=== PATIENT | female | born 1945 | race Caucasian/White ===

== ENCOUNTER → 2017-01-11 | Outpatient (CLI) | payer OTHER | LOC: FIMAGING 12:55 | PROVIDERS: ATTEND Family Medicine | DX: R22.0 Localized swelling, mass and lump, head (principal); R51 Headache; R41.3 Other amnesia; R11.0 Nausea; Z87.820 Personal history of traumatic brain injury ==

== ENCOUNTER → 2017-02-12 | Outpatient (CLI) | payer OTHER | LOC: FIMAGING 12:28 | PROVIDERS: ATTEND Family Medicine | DX: M16.0 Bilateral primary osteoarthritis of hip (principal) ==

== ENCOUNTER → 2017-09-24 | Outpatient (CLI) | payer OTHER | LOC: CIMAGING 08:07 | PROVIDERS: ATTEND Orthopaedic Surgery | DX: Z01.89 Encounter for other specified special examinations (principal); M16.11 Unilateral primary osteoarthritis, right hip | CPT/HCPCS: 73700-PO ==

== ENCOUNTER 2017-09-27 05:31 | Inpatient (IN) | payer OTHER ==
[2017-09-27] MEDS ORDERED: BUPI/epINEPH/KETOROLAC IU ONE (06:00)
[2017-09-27] MEDS ORDERED: TRANEXAMIC ACID 1,000 MG in NS (SYRINGE) 50 ML IV ONE (06:00)
[2017-09-27] MEDS ORDERED: ROPIVACAINE 0.2% 80 MG, EPINEPHrine 0.2 MG, KETOROLAC TROMETHAMINE 30 MG in SYRINGE 0 ML IU ONE (06:00)
[2017-09-27] MEDS ORDERED: POVIDONE-IODINE 20 ML in SODIUM CL IRRIG SOLUTION 500 ML IRR ONE (06:00)
[2017-09-27] MEDS ORDERED: ACETAMINOPHEN 325 MG TAB PO ONE (06:13)
[2017-09-27] MEDS ORDERED: ceFAZolin 2 GM/SWFI 2 GM/20 ML SYR IVP ONE (06:13)
[2017-09-27] MEDS ORDERED: DEXAMETHASONE 4 MG/ML VIAL IVP ONE (06:13)
[2017-09-27] MEDS ORDERED: FAMOTIDINE 20 MG TAB PO ONE (06:13)
[2017-09-27] MEDS ORDERED: LIDOCAINE 1% 2 ML INJ ID PRN (06:17)
[2017-09-27] MEDS ORDERED: LR 1,000 ML IV ONE (06:17)
[2017-09-27] MEDS ORDERED: BUPIVACAINE/EPI 0.5% 30 ML SDV ONE (06:45)
[2017-09-27] MEDS ORDERED: POLYMYXIN B SULFATE 500,000 UNIT/10 ML SYR IRR ONE (06:46)
[2017-09-27] MEDS ORDERED: BACITRACIN 50,000 UNITS/10 ML SYR IRR ONE (06:46)
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
[2017-09-27] MEDS ORDERED: MIDAZOLAM 2 MG/2 ML VIAL IVP ONE (07:02)
--- NOTE | 2017-09-27 07:06 | PDHPUP ---
History & Physical Update H&P update statement: This history and physical update is based on an assessment of the patient which was completed after admission or registration (within 24 hours), but prior to the surgery/procedure. H&P update: H&P reviewed & patient examined, no change in patient's condition since H&P completed
[2017-09-27] MEDS ORDERED: BUPIVACAINE 0.5% 30 ML SDV ONE (07:09)
[2017-09-27] MEDS ORDERED: PROPOFOL/EMULSION 500 MG/50 ML BOTTLE IV ONE ×2 (07:10→08:43)
[2017-09-27] MEDS ORDERED: LIDOCAINE 2% 5 ML SDV ONE (07:10)
[2017-09-27] MEDS ORDERED: fentaNYL 100 MCG/2 ML INJ ONE (07:11)
[2017-09-27] MEDS ORDERED: epHEDrine SULFATE 10 MG/ML SYR ONE (07:57)
[2017-09-27] MEDS ORDERED: PHENYLEPHRINE HCL 100 MCG/ML SYR ONE (08:20)
[2017-09-27] MEDS ORDERED: ONDANSETRON 4 MG/2 ML VIAL IVP PRN ×2 (10:10→10:18)
[2017-09-27] MEDS ORDERED: fentaNYL 100 MCG/2 ML INJ IVP PRN (10:10)
[2017-09-27] MEDS ORDERED: PROMETHAZINE HCL 25 MG/ML INJ IVP PRN ×2 (10:10→10:18)
[2017-09-27] MEDS ORDERED: NALOXONE HCL 0.4 MG/ML INJ IVP PRN (10:10)
[2017-09-27] MEDS ORDERED: ALBUTEROL 3 ML DEYVIAL IH PRN (10:10)
[2017-09-27] MEDS ORDERED: DIAZEPAM 5 MG/ML 1 ML SYR IVP PRN (10:10)
[2017-09-27] MEDS ORDERED: oxyCODONE IR 5 MG TAB PO PRN (10:10)
[2017-09-27] MEDS ORDERED: HYDROmorphONE/DILAUDID 1 MG/ML INJ IVP PRN (10:10)
--- NOTE | 2017-09-27 10:10 | POSTANESTH ---
Post Anesthetic Evaluation Cardiovascular Status: Normal, Stable Respiratory Status: Normal, Stable Level of Consciousness/Mental Status: Can Participate in Eval Pain Control: Adequate, Prn Tx Ordered Nausea/Vomiting Control: Adequate, Prn Tx Ordered Complications Possibly Related to Anesthesia: None Noted
[2017-09-27] MEDS ORDERED: MAGNESIUM HYDROXIDE 30 ML UDCUP PO PRN (10:18)
[2017-09-27] MEDS ORDERED: DIPHENOXYLATE/ATROPINE LOMOTIL 1 TAB PO PRN (10:18)
[2017-09-27] MEDS ORDERED: diphenhydrAMINE 25 MG CAP PO PRN (10:18)
[2017-09-27] MEDS ORDERED: PROMETHAZINE HCL 25 MG SUPPR PR PRN (10:18)
[2017-09-27] MEDS ORDERED: BISACODYL 10 MG SUPP PR PRN (10:18)
[2017-09-27] MEDS ORDERED: HYDROmorphONE/DILAUDID 2 MG/ML INJ IVP PRN (10:18)
[2017-09-27] MEDS ORDERED: METOCLOPRAMIDE 10 MG/2 ML VIAL IVP PRN (10:18)
[2017-09-27] MEDS ORDERED: CYCLOBENZAPRINE 10 MG TAB PO PRN (10:18)
[2017-09-27] MEDS ORDERED: ONDANSETRON DISINTEGRATING 4 MG TAB PO PRN (10:18)
[2017-09-27] MEDS ORDERED: LACTULOSE 20 GM/30 ML UDCUP PO PRN (10:18)
[2017-09-27] MEDS ORDERED: TEMAZEPAM 15 MG CAP PO PRN (10:18)
[2017-09-27] MEDS ORDERED: POLYETHYLENE GLYCOL 3350 17 GM PKT PO PRN (10:18)
--- NOTE | 2017-09-27 10:18 | POSTOPPROG ---
Post Op Note Date of Operation: 09/27/17 Surgeon: Royce Sharma Director Mobile: Oswaldo Banda CSA Anesthesia: IV Sedation, Spinal Pre-op Diagnosis: Right hip end-stage OA Post-op Diagnosis: Same Procedure: Right anterior approach GISELA Inf/Abcess present in the surg proc area at time of surgery?: No EBL: 100-500 (300) Drains: Hemovac
[2017-09-27] MEDS ORDERED: LR 1,000 ML IV SCH (10:30)
[2017-09-27] MEDS: ACETAMINOPHEN 325 MG TAB PO SCH ×3 (12:18→23:42)
[2017-09-27] MEDS ORDERED: ceFAZolin 2 GM/DEXTROSE 100 ML IV SCH (14:00)
--- NOTE | 2017-09-27 14:07 | PDMN ---
Medical Necessity Medical necessity: Patient meets inpatient criteria per physician note and [facility] S -560 Hip Arthroplasty (CPT 79825 / Medicare inpatient-only surgery.)
[2017-09-27] MEDS: oxyCODONE IR 5 MG TAB PO PRN ×3 (14:58→18:38)
--- NOTE | 2017-09-27 15:14 | ASMTCMCOM ---
CM Note CM Note Notes: Telephone call from Dr. Edith HAJI Luz Maria ([phone]) reporting she originally believed pt had family available to stay with her for longer than they actually can. Pt dghtr called Luz Maria to say family can only stay w pt Sunday night and Sunday night if pt d/c tomorrow. Pt does live alone. Luz Maria has already set up [facility] PT for pt. PT rec home/outpatient today so pt may not qualify for SNF if she is interested. Luz Maria would like to be updated on d/c planning. CM to follow pt progress and discuss d/c with pt tomorrow. Date Signed: 09/27/2017 03:13 PM Electronically Signed By:CORA Oconnell
[2017-09-27] MEDS: ceFAZolin 2 GM/SWFI 2 GM/20 ML SYR IVP SCH ×2 (15:46→23:42)
--- NOTE | 2017-09-27 20:09 | GOP ---
[f rep st] OPERATIVE REPORT DATE OF OPERATION: 09/27/2017 SURGEON: Royce Sharma MD BRAZING MACHINE OPERATOR HELPER: ANA QuinnA, LSJacqui Barrel Drum Cutter was required for the procedure due to the complexity of the case, the patient's condition, for positioning, prepping, draping, retraction, and closure. ANESTHESIA: Spinal and IV sedation. PREOPERATIVE DIAGNOSIS: Right hip osteoarthritis. POSTOPERATIVE DIAGNOSIS: Right hip osteoarthritis. PROCEDURE PERFORMED: Right hip anterior approach hip replacement with MAKOplasty robotic guidance and fluoroscopic supervision greater than 1 hour. SPECIMENS: None. ESTIMATED BLOOD LOSS: 300 cc. INDICATIONS: Patient has severe osteoarthritis that failed to improve with conservative measures significantly affecting activities of daily living, including walking. The patient elected to proceed with anterior approach hip replacement using MAKOplasty robotic guidance after extensive discussion of all possible approaches as well as the risks, benefits, pros, cons, expected recovery, and prognosis. Patient verbalized understanding of the risks and benefits of the procedure and signed the informed consent prior to the procedure. DESCRIPTION OF PROCEDURE: Patient was seen in the holding area and the operative consent and extremity were signed. Patient then taken to the operating room. After smooth induction of general anesthesia, patient was placed in supine position on the [facility] fracture table. The hip and contralateral iliac crest were prepped and draped in the usual sterile fashion. The operative site was confirmed by signature. Operative time-out performed. Allergies reviewed. Antibiotics and TXA administered. Three pins were placed in the contralateral iliac crest and the pelvic array was fixed. It was well visualized by the robot. The desired incision for the anterior approach to the hip was infiltrated with 0.5% Marcaine with epinephrine. The incision was then made with a 10 blade, carried down through subcutaneous tissue to identify the TFL fascia. This was incised inline with the incision and the TFL was retracted laterally. The lateral femoral circumflex vessels were coagulated with Aquamantys and Bovie electrocautery. The deep TFL fascia was incised with vastus lateralis clearly exposed. The precapsular fat was excised. A T-shaped capsulotomy was performed and the capsule was preserved for later closure. The femoral checkpoint was placed into the anterior greater trochanter and Express registration was completed using the robot. The femoral neck cut was estimated using fluoroscopic guidance and the neck cut was then performed and the femoral head was excised with a corkscrew. The acetabulum was exposed in standard fashion. Labrum and pulvinar soft tissue were excised sharply. The pelvic checkpoint was placed in the AIIS. Acetabular registration was performed using the robot. Reaming was then performed using the robot to the desired size. The cup was impacted into place , again with robotic guidance system. Good fixation was achieved. The cup was irrigated and dried and the liner was impacted into place, achieving good locking within the cup. There were no overhanging osteophytes. The femur was then exposed in standard fashion. The femur was broached to the desired size. Trial neck and head were attached and the hip was relocated. Length and offset were confirmed using the robot. The position of all components was also confirmed at this point fluoroscopically. The hip was dislocated and the femoral trial components were removed and the stem was impacted into place. The trunnion was cleaned and dried and the head was impacted down into the trunnion. The wound was copiously irrigated, including the cup with pulse lavage and the hip was once again relocated. Final numbers for length and offset were again checked with the robot and component placement was confirmed with fluoroscopy. All checkpoints were removed. The pelvic array was also removed. The wound was copiously irrigated with sterile solution. Dilute Betadine solution was then irrigated into the wound allowed to soak for 3 minutes before being irrigated out. The joint cocktail was injected in the soft tissues. The capsule was repaired with #1 Vicryl sutures, including the indirect head of the rectus femoris. The drain was placed exiting distally and laterally from deep to TFL. The wound was then closed in layers with 0 Quill in the TFL fascia and deep subcutaneous fat and 3-0 Versalok in the dermis. The wound was dressed with sterile dressings, and the patient was safely awakened and taken to the recovery room in stable condition. All critical portions of the procedure were performed by myself, Dr. Sharma. The operative note was created by myself, Dr. Sharma, and I was immediately available for emergency cross-coverage at all times. DRAINS: Hemovac x1. COMPLICATIONS: None. IMPLANTS: Includes a Trident hemispherical acetabular shell size 54, +36 mm polyethylene liner. Accolade II size 4 stem, 127-degree offset 36 mm, -2.5 head. /[id number]/MODL MTDD
[2017-09-27] MEDS: FAMOTIDINE 20 MG TAB PO SCH (20:50)
[2017-09-27] MEDS: SENNOSIDES/DOCUSATE SODIUM TAB PO SCH (20:50)
[2017-09-27] MEDS: ASPIRIN 325 MG TAB PO SCH (20:51)
[2017-09-27] MEDS ORDERED: traZODone 50 MG TAB PO SCH (21:00)
[2017-09-27] MEDS ORDERED: MELATONIN 3 MG TAB PO SCH (21:00)
[2017-09-28] MEDS: oxyCODONE IR 5 MG TAB PO PRN ×3 (02:23→12:17)
[2017-09-28] MEDS: ACETAMINOPHEN 325 MG TAB PO SCH ×2 (06:21→12:17)
--- NOTE | 2017-09-28 07:40 | SOAPPROG ---
SOAP Progress Note Assessment/Plan: Assessment: Postoperative day 1 status post right anterior approach total hip arthroplasty Plan: Weight-bearing as tolerated, PT OT, with assistance Analgesics as needed, wean off narcotics as tolerated Incentive spirometry 10 times per hour Aspirin 325 mg daily, Sobeida Osborn for DVT prophylaxis Disposition: Home today 09/28/17 07:37 Subjective: No acute events overnight. Patient however did not rest well. Pain is well controlled mostly with Tylenol only. She denies fevers chills nausea vomiting chest pain shortness of breath numbness or tingling. Does admit to mild swelling Objective: Vital Signs Temp Pulse Resp BP Pulse Ox 36.8 C 68 16 103/4 L 93 09/28/17 04:00 09/28/17 04:00 09/28/17 04:00 09/28/17 04:00 09/28/17 04:00 Laboratory Results 09/28/17 04:33 09/27/17 09/28/17 09/29/17 05:59 05:59 05:59 Intake Total 4100 Output Total 2620 Balance 1480 Awake alert and oriented x3 no acute distress Easy nonlabored breathing Right lower extremity: Mild swelling and ecchymosis No erythema or or drainage Drain discontinued Thigh and calf compartments soft compressible No calf pain Sensation intact light touch L4-S1 Motor intact EHL FHL tibialis anterior gastrocsoleus Palpable DP PT pulses - Time Spent With Patient Time Spent With Patient: 15 - Pending Discharge Pending Discharge Within 24 Hours: Yes Pending Discharge Date: 09/28/17 Pending Discharge Time: 11:00 ICD10 Worksheet Patient Problems: Problems Problem Status Onset Osteoarthritis of right hip Acute
[2017-09-28 07:46] VITALS: BP 122/67
[2017-09-28] MEDS: SENNOSIDES/DOCUSATE SODIUM TAB PO SCH (08:22)
[2017-09-28] MEDS: FAMOTIDINE 20 MG TAB PO SCH (08:22)
[2017-09-28] MEDS: ASPIRIN 325 MG TAB PO SCH (08:24)
[2017-09-28] MEDS ORDERED: FLUoxetine 10 MG CAP PO SCH (09:00)
[2017-09-28] MEDS ORDERED: PRAVASTATIN SODIUM 20 MG TAB PO SCH (09:00)
[2017-09-28] MEDS ORDERED: MULTIVITAMINS 1 EACH TAB PO SCH (09:00)
--- NOTE | 2017-09-28 10:04 | ASMTCMCOM ---
CM Note CM Note Notes: Dc order received. Met with pt to discuss HHC vs SNF. Pt prefers to return home with C. [facility] previously arranged. Pt states her daughter will be staying with her the next couple nights. Updated Luz Maria HAJI; confirmed [facility] orders were previously sent to [facility]. Spoke with Karrie at [facility]; confirmed orders were received. Faxed paperwork; confirmed received. RN updated. No other needs at this time. Date Signed: 09/28/2017 10:03 AM Electronically Signed By:No Ku RN
--- NOTE | 2017-09-28 10:05 | ASDISCHSUM ---
Discharge Information Plan Status:Home with Home Health Medically Cleared to Leave:09/28/2017 Discharge Date:09/28/2017 CM D/C Disposition:Home Health Service ADT D/C Disposition:Home, Routine, Self-Care Projected Discharge Date:09/28/2017 11:00 AM Transportation at D/C:Family Discharge Delay Reason: Follow-Up Date:09/28/2017 11:00 AM Discharge Slot: Final Diagnosis: Placement Information Referral Type:*Home Health Care Services Referral ID:[id number] Provider Name:[facility] Address 1:[address] Address 2: City:[place] Selection Factors: State:[place] Patient Contact Information Contact Name:DONALD Relationship:Daughter Address:[address] Work Phone: City:[place] Alternate Phone: State/Zip Code:[place] [address] Email: Financial Information Financial Class:Medicare Advantage Plans Primary Plan Desc:[facility] ADVANTAGE PLANS Primary Plan Number:[id number] Secondary Plan Desc: Secondary Plan Number: Assessment Information [facility] CM Progress Note CM Note CM Note Notes: Telephone call from Dr. Edith Loera ([phone]) reporting she originally believed pt had family available to stay with her for longer than they actually can. Pt dghtr called Luz Maria to say family can only stay w pt Sunday night and Sunday night if pt d/c tomorrow. Pt does live alone. Luz Maria has already set up [facility] PT for pt. PT rec home/outpatient today so pt may not qualify for SNF if she is interested. Luz Maria would like to be updated on d/c planning. CM to follow pt progress and discuss d/c with pt tomorrow. Date Signed: 09/27/2017 03:13 PM Electronically Signed By:CORA Oconnell LACE LACE Length of stay for Answers: 2 days current admission Acuity / Level of Answers: Yes Care: Did the patient have an inpatient admission? Comorbidities - select Answers: Opioid dependence all that apply / Chronic pain # of Emergency department Answers: 0 visits in the last 6 months Social determinants Answers: Mental health diagnosis (anxiety, depression, pers onality disorders, etc.) Score: 12 Date Signed: 09/28/2017 09:55 AM Electronically Signed By:No Ku RN [facility] CM Progress Note CM Note CM Note Notes: Dc order received. Met with pt to discuss C vs SNF. Pt prefers to return home with [facility]. [facility] previously arranged. Pt states her daughter will be staying with her the next couple nights. Updated Luz Maria HAJI; confirmed HHC orders were previously sent to [facility]. Spoke with Karrie at [facility]; confirmed orders were received. Faxed paperwork; confirmed received. RN updated. No other needs at this time. Date Signed: 09/28/2017 10:03 AM Electronically Signed By:No Ku RN Intervention Information
--- NOTE | 2017-09-29 14:21 | GDS ---
[f rep st] DISCHARGE SUMMARY ADMITTING DIAGNOSIS: Right hip osteoarthritis. DISCHARGE DIAGNOSIS: Right hip osteoarthritis. PROCEDURE PERFORMED: Right anterior approach total hip arthroplasty with Chip robotic guidance. HOSPITAL COURSE: The patient was admitted on the above date and underwent the above procedure withou t complication. She was admitted for pain control, observation, physical therapy, postoperative anti biotics. Her pain was very well controlled postoperatively. She received 24 hours of Ancef postoper atively. She worked with physical therapy on postop day 1 and was deemed safe for discharge home wit h home PT. She was given aspirin while in the hospital along with SCDs and KANE fine for DVT prophyla xis. DISCHARGE PLAN: Weightbearing as tolerated with assistance, walker and home PT, OT. Percocet as nee ded for pain control, Colace for stool softener, and aspirin 325 mg daily for DVT prophylaxis. FOLLOWUP: In 10-14 days for her first postoperative visit. Call with any questions. DISCHARGE DISPOSITION: Home. CONDITION UPON DISCHARGE: Stable. /[id number]/MODL
== END 2017-09-28 15:22 | disposition home or self-care (01) | DRG 470 ==
LOC: F3N 05:31
PROVIDERS: ADMIT Orthopaedic Surgery; ATTEND Orthopaedic Surgery
DX: M16.11 Unilateral primary osteoarthritis, right hip (principal); E78.00 Pure hypercholesterolemia, unspecified; Z85.3 Personal history of malignant neoplasm of breast; Z87.891 Personal history of nicotine dependence
CPT/HCPCS: 97116-GP; 97161-GP; 97165-GO; G8978-GP-CJ; G8979-GP-CI; G8980-GP-CI; G8987-GO-CI; G8988-GO-CI; G8989-GO-CI; J0171; J0690; J1100; J1885; J2250; J2370; J2704; J3010

== ENCOUNTER 2018-06-23 10:28 | Emergency (ER) | payer OTHER ==
[2018-06-23] MEDS ORDERED: HYOSCYAMINE SULFATE 0.125 MG TAB PO ONE (11:02)
[2018-06-23] MEDS ORDERED: MAG HYDROX/AL HYDROX/SIMETH 30 ML UDCUP PO ONE (11:02)
[2018-06-23] MEDS ORDERED: ASPIRIN 81 MG CHEWABLE TAB PO ONE (11:06)
--- NOTE | 2018-06-23 11:57 | EDPHY ---
H & P Stated Complaint: chest heaviness that started today and left foot swelling x 1 week, -trauma Time Seen by Provider: 06/23/18 10:38 HPI/ROS: This patient complains of left foot pain for 1 1 weeks duration without acute trauma. She reports the pain has increased steadily in the forefoot region and prevented sleep last night. She states that the current pain intensity is 4/10 at rest and 9/10 with weight-bearing. She has minimal improvement from over-the -counter analgesics and denies any other exacerbating factors. She also reports intermittent chest heaviness that she describes to life stressors over the past year citing a pending court case. She has describing this is very vague heaviness that is nonradiating and is associated with increased belching. At the moment she describes the discomfort as 4/10 intensity isn't certain when it started. She notes no change in the chest heaviness with exertion. She arrived here today by private vehicle for evaluation of her symptoms. ROS: Constitutional: No fevers HEENT: She reports nasal just charge recently. No sinus pain. No ear pain. No sore throat Pulmonary: Occasional shortness of breath with exertion but no significant dyspnea at rest. Cardiovascular: No leg swelling or calf pain. She reports occasional feeling like there is a a brief pause in her heart but no other heart palpitations. No lightheadedness. GI: Increased belching as described. Normal bowel movements. No nausea or vomiting. Endocrine: No diaphoresis. Musculoskeletal: No complaints-no recent acute trauma : No urinary symptoms Psychiatric: She reports increased social stressors but denies depression. She is generally sleeping without difficulty except for the last night or to because of pain. 10 point review of symptoms is performed and otherwise negative with exception of pertinent positives and negatives listed in HPI and ROS Source: Patient Exam Limitations: No limitations - Medical/Surgical History Hx Asthma: No Hx Chronic Respiratory Disease: No Hx Diabetes: No Hx Cardiac Disease: No Hx Renal Disease: No Hx Cirrhosis: No Hx Alcoholism: No Hx HIV/AIDS: No Hx Splenectomy or Spleen Trauma: No Other PMH: high chol, L breast CA post radiation/chemo with lumpectomy/lymph, appy - Family History Significant Family History: Other (Unknown family history) - Social History Smoking Status: Former smoker Alcohol Use: Rarely Drug Use: None - Physical Exam Exam: General Appearance: Alert, no distress. Eyes: Pupils equal and round no pallor or injection. ENT, Mouth: Mucous membranes moist. Respiratory: There are no retractions, lungs are clear to auscultation. Cardiovascular: Regular rate and rhythm. Gastrointestinal: Abdomen is soft and nontender, no masses, bowel sounds normal. Neurological: GCS 15 Skin: Warm and dry, no rashes. Musculoskeletal: Neck is supple nontender. Extremities -atraumatic, are symmetrical, full range of motion except for left foot Left foot: Patient has mild swelling and tenderness to the forefoot particularly overlying the 2nd metatarsal region. No ankle swelling or calf swelling or tenderness Psychiatric: Mood and affect are normal DIFFERENTIAL DIAGNOSIS: After history and physical exam differential diagnosis was considered for foot fracture, sprain, contusion, doubt plantar fasciitis, GERD, esophageal spasm, myocardial ischemic disease, pulmonary embolism, pneumonia, pneumothorax Constitutional: Initial Vital Signs Temperature (C) 36.5 C 06/23/18 10:43 Heart Rate 67 06/23/18 10:43 Respiratory Rate 18 06/23/18 10:43 Blood Pressure 158/91 H 06/23/18 10:43 O2 Sat (%) 97 06/23/18 10:43 O2 Delivery Mode Room Air Allergies/Adverse Reactions: No Known Allergies Allergy (Verified 06/23/18 10:42) Home Medications: Medication Instructions Recorded FLUoxetine [Prozac 10 MG (*)] 10 mg PO DAILY 09/12/17 traZODone [traZODONE 50MG (*)] 50 - 100 mg PO HS 09/12/17 Pantoprazole Sodium [Protonix 40mg 40 mg PO DAILY #20 tab 06/23/18 (*)] traMADol [Ultram 50 mg (*)] 50 - 100 mg PO Q4 PRN #20 tab 06/23/18 Medical Decision Making - Diagnostics EKG Interpretation: 12 lead EKG performed shortly after arrival indication chest pressure Performed at 10:45 a.m. Sinus rhythm at 64 Intervals: Normal throughout [place]: Normal throughout ST segments: Normal throughout Overall assessment: Normal EKG Imaging Results: Imaging Impressions Foot X-Ray 06/23/18 11:10 Impression: Nondisplaced fracture middiaphysis second metatarsal. Chest X-Ray 06/23/18 11:51 Impression: No evidence for acute cardiopulmonary abnormality. ED Course/Re-evaluation: IV, monitor Maalox and Levsin with resolution of chest pressure I counseled patient regarding her foot fracture. Splinting: Patient is placed in a postop shoe by our wander Lopez. She is also fitted with crutches and counseled regarding crutch use. Labs: CBC is normal, metabolic panel is normal, troponin is normal, D-dimer is normal Discussion: Patient with stress fracture seems to pathologic fracture- osteopenia. Counseled regarding this. Her chest pressure may be GERD related that she has increased belching associated with this and a normal EKG, normal troponin. No other symptoms that sound cardiac. Advised her to follow up with Dr. Chaney-lock and dam operator on-call as an outpatient. She understands need to return emergency department should she develop any significant worsening of the chest discomfort despite starting H2 allison or proton pump inhibitor. She will follow up with Orthopedics this week. - Data Points Laboratory Results: 06/23/18 06/23/18 10:53 10:50 POC Sodium 140 mEq/L mEq/L (135-145) POC Potassium 3.6 mEq/L mEq/L (3.3-5.0) POC Chloride 102.0 mEq/L mEq/L (97-110) POC Total CO2 26 mEq/L mEq/L (22-31) POC BUN 7 mg/dL mg/dL (7-23) POC Creatinine 0.8 mg/dL mg/dL (0.6-1.0) POC Glucose 96 mg/dL mg/dL (70-100) POC Calcium 9.2 mg/dL mg/dL (8.5-10.4) POC Troponin I 0.00 ng/mL ng/mL (0.00-0.08) Medications Given: Discontinued Medications Al Hydroxide/Mg Hydroxide (Maalox Susp) 30 ml PO EDNOW ONE Stop: 06/23/18 11:03 Last Admin: 06/23/18 11:12 Dose: 30 ml Aspirin (Aspirin) 324 mg PO EDNOW ONE Stop: 06/23/18 11:07 Last Admin: 06/23/18 11:12 Dose: 324 mg Hyoscyamine Sulfate (Levsin, Hyomax-Sl) 0.125 mg PO EDNOW ONE Stop: 06/23/18 11:03 Last Admin: 06/23/18 11:12 Dose: 0.125 mg Point of Care Test Results: CBC CBC Collection Date 06/23/18 CBC Collection Time 10:50 WBC 3.5 RBC 4.7 HGB 15.3 HCT 42.6 PLT 193 Neut # 2.1 Neut 60.5 LYMPH # 1.2 LYMPH 33.0 Other WBC # 0.2 Other WBC 6.5 MCV 90.6 Chemistry 06/23/18 06/23/18 10:53 10:50 POC Sodium 140 mEq/L mEq/L (135-145) POC Potassium 3.6 mEq/L mEq/L (3.3-5.0) POC Chloride 102.0 mEq/L mEq/L (97-110) POC Total CO2 26 mEq/L mEq/L (22-31) POC BUN 7 mg/dL mg/dL (7-23) POC Creatinine 0.8 mg/dL mg/dL (0.6-1.0) POC Glucose 96 mg/dL mg/dL (70-100) POC Calcium 9.2 mg/dL mg/dL (8.5-10.4) POC Troponin I 0.00 ng/mL ng/mL (0.00-0.08) D-Dimer D-Dimer Collection Date 06/23/18 D-Dimer Collection Time 10:50 D-Dimer (ng/ml) less than 100 Departure - Departure Disposition: Home, Routine, Self-Care Clinical Impression: Chest pain Metatarsal fracture Qualifiers: Encounter type: initial encounter Metatarsal bone: second Fracture type: closed Fracture alignment: nondisplaced Laterality: left Qualified Code(s): S92.325A - Nondisplaced fracture of second metatarsal bone, left foot, initial encounter for closed fracture Condition: Good Instructions: Chest Pain (ED), Foot Fracture in Adults (ED), Gastroesophageal Reflux Disease (ED) Additional Instructions: Diagnoses: 1. Foot fracture-2nd metatarsal 2. Chest pain Your foot fracture appears to be a "stress fracture". Wear the splint whenever up and about in use crutches-no weight-bearing. Call the orthopedic physician listed below to arrange follow-up appointment for this coming week for further evaluation. Take ibuprofen and/or Tylenol for pain Tramadol in addition if pain prevents sleep. No driving, alcohol or come tramadol You may have acid reflux causing esophageal/chest pain. Consider any antacid such as the Protonix as prescribed or [id number] antacid and have a bland diet until symptoms improve Call Dr. Chaney, lock and dam operator for further evaluation of your chest discomfort as an outpatient. Also, Follow up with primary care physician for any ongoing symptoms Return emergency department if he developed worsening chest pain despite plan or for other concerns. Referrals: Shani Elena MD [Primary Care Provider] - As per Instructions Trixie Fried MD [Medical Doctor] - As per Instructions Dariel Chaney MD [Medical Doctor] - As per Instructions Prescriptions: Pantoprazole Sodium [Protonix 40mg (*)] 40 mg PO DAILY #20 tab traMADol [Ultram 50 mg (*)] 50 - 100 mg PO Q4 PRN #20 tab PRN Reason: breakthrough pain
[2018-06-23 12:36] VITALS: BP 151/87
--- NOTE | 2018-06-23 21:03 | CPEKG ---
Test Reason : OPEN Blood Pressure : / mmHG Vent. Rate : 064 BPM Atrial Rate : 064 BPM P-R Int : 146 ms QRS Dur : 088 ms QT Int : 438 ms P-R-T Axes : 011 024 -14 degrees QTc Int : 452 ms Sinus rhythm Confirmed by Ila Nowak ([id number]) on 06/23/2018 9:03:04 PM Referred By: Confirmed By:Ila Nowak
== END 2018-06-23 12:45 | disposition home or self-care (01) ==
LOC: CED 10:28
DX: S92.325A Nondisplaced fracture of second metatarsal bone, left foot, initial encounter for closed fracture (principal); R07.9 Chest pain, unspecified; E78.00 Pure hypercholesterolemia, unspecified; X58.XXXA Exposure to other specified factors, initial encounter; Y92.9 Unspecified place or not applicable; Y93.9 Activity, unspecified; Y99.9 Unspecified external cause status; Z87.891 Personal history of nicotine dependence
CPT/HCPCS: 71046; 73630; 93005; 99285; L4386; 80048-ER; 84484-ER